=== PATIENT | male | born 1990 | race Caucasian/White ===

== ENCOUNTER 2022-12-03 15:00 | Outpatient (CLI) | payer OTHER | END 2022-12-03 15:01 | disposition home or self-care (01) | LOC: SCSMRI 15:00 | PROVIDERS: ATTEND Nurse Practitioner Family | DX: M47.816 Spondylosis without myelopathy or radiculopathy, lumbar region (principal); M51.36 Other intervertebral disc degeneration, lumbar region; M48.061 Spinal stenosis, lumbar region without neurogenic claudication | CPT/HCPCS: 72148 ==